=== PATIENT | male | born 1980 | race Caucasian/White ===

== ENCOUNTER 2018-11-24 20:30 | Emergency (ER) | payer MEDICAID ==
[2018-11-24] MEDS: HYDROCODONE/APAP (5/325) TAB PO (21:59)
[2018-11-24] MEDS: KETOROLAC 60 MG INJ IM (22:00)
== END 2018-11-24 22:20 | disposition home or self-care (01) ==
LOC: FTE 20:30
DX: M54.5 Low back pain (principal); I10 Essential (primary) hypertension
CPT/HCPCS: 96372; 99284-25

== ENCOUNTER 2018-12-29 17:18 | Emergency (ER) | payer MEDICAID ==
[2018-12-29] MEDS: KETOROLAC 60 MG INJ IM (21:13)
[2018-12-29] MEDS: HYDROCODONE/APAP (10/325) TAB PO (21:13)
== END 2018-12-29 22:37 | disposition home or self-care (01) ==
LOC: FTE 17:18
DX: S39.92XA Unspecified injury of lower back, initial encounter (principal); W01.0XXA Fall on same level from slipping, tripping and stumbling without subsequent striking against object, initial encounter; Y92.9 Unspecified place or not applicable
CPT/HCPCS: 72100; 96372; 99284-25

== ENCOUNTER 2018-12-30 00:08 | Emergency (ER) | payer SELFPAY, MEDICAID | END 2018-12-30 01:02 | disposition left against medical advice (07) | LOC: FTE 00:08 | DX: Z53.21 Procedure and treatment not carried out due to patient leaving prior to being seen by health care provider (principal) | CPT/HCPCS: 93005 ==